=== PATIENT | male | born 1995 ===

== ENCOUNTER 2021-08-16 14:40 | Emergency (ER) | payer SELFPAY ==
[~2021-08-16] VITALS: Ht 182.9 cm; Wt 85.3 kg
[2021-08-16 14:45] VITALS: BP 147/85
[2021-08-16] MEDS ORDERED: NALO4SPR BOTHNARES (17:27)
== END 2021-08-16 19:00 | disposition home or self-care (01) ==
LOC: ER 14:41
DX: T40.5X1A Poisoning by cocaine, accidental (unintentional), initial encounter (principal); Y92.89 Other specified places as the place of occurrence of the external cause
CPT/HCPCS: 93005; 99283